=== PATIENT | female | born 1990 | race Caucasian/White ===

== ENCOUNTER 2018-11-17 11:40 | Emergency (ER) | payer OTHER ==
[~2018-11-17] VITALS: Ht 170.2 cm; Wt 72.7 kg
[2018-11-17 11:48] VITALS: BP 133/86
--- NOTE | 2018-11-17 12:01 | NUR ---
pt to xray
--- NOTE | 2018-11-17 12:20 | NUR ---
PROVIDER AT BEDSIDE TO EVAL PT, PT IS RESTING QUIETLY ON GURNEY, RESP EVEN AND UNLABORED, SKIN P/W/D, TALKING FULL SENTENCES
[2018-11-17] MEDS ORDERED: BENZ-16 PO (12:32)
== END 2018-11-17 12:50 | disposition home or self-care (01) ==
LOC: ER 11:41
DX: J20.9 Acute bronchitis, unspecified (principal); Z88.6 Allergy status to analgesic agent; Z79.899 Other long term (current) drug therapy
CPT/HCPCS: 71046; 99283

== ENCOUNTER 2020-07-11 00:31 | Emergency (ER) | payer MEDICAID ==
[~2020-07-11] VITALS: Ht 167.6 cm; Wt 67.5 kg
--- NOTE | 2020-07-11 01:30 | NUR ---
Pt is lying on gurney and appears to be resting comfortably. Pt with no s/s of distress noted. Resp rate remains normal.
[2020-07-11 01:34] LABS: BASOPHILS # (AUTO) 0.1 X10'3 (0-0.2); BASOPHILS % (AUTO) 0.9 % (0-1); EOSINOPHILS # (AUTO) 0.1 X10'3 (0-0.9); EOSINOPHILS % (AUTO) 0.9 % (0-6); HEMATOCRIT 37.7 % (35.0-45.0); LYMPHOCYTES # (AUTO) 2.2 X10'3 (1.1-4.8); LYMPHOCYTES % (AUTO) 32.2 % (21-51); MEAN CORPUSCULAR HEMOGLOBIN 31.5 PG (27.0-31.0); MEAN CORPUSCULAR HGB CONC 34.5 g/dL (33.0-36.5); MEAN CORPUSCULAR VOLUME 91.4 FL (78-98); MONOCYTES # (AUTO) 0.5 X10'3 (0-0.9); MONOCYTES % (AUTO) 7.4 % (2-12); NEUTROPHILS # (AUTO) 3.9 X10'3 (1.8-7.7); NEUTROPHILS % (AUTO) 58.6 % (42-75); PLATELET COUNT 284 X10'3 (140-440); RED BLOOD COUNT 4.12 X10'6 (4.20-5.60); RED CELL DISTRIBUTION WIDTH 12.3 % (11.5-14.5); WHITE BLOOD COUNT 6.7 X10'3 (4.5-11.0)
[2020-07-11 01:36] LABS: CLARITY,URINE CLEAR (Clear); COLOR,URINE STRAW (Yellow); GLUCOSE, URINE NEGATIVE (Neg); KETONES,URINE NEGATIVE (Neg); LEUKOCYTE ESTERASE ,URINE NEGATIVE (Neg); NITRITES, URINE NEGATIVE (Neg); OCCULT BLOOD,URINE NEGATIVE (Neg); PROTEIN,URINE NEGATIVE (Neg); UROBILINOGEN,URINE 0.2 E.U/dL (0.2-1.0)
[2020-07-11 01:37] LABS: UA COLLECTION TYPE CLN CATCH MIDSTREAM
[2020-07-11 01:38] LABS: URINE HCG NEGATIVE (NEG)
[2020-07-11 01:42] LABS: ALANINE AMINOTRANSFERASE 28 U/L (12-78); ALBUMIN 3.6 G/DL (3.4-5.0); ALKALINE PHOSPHATASE 74 IU/L (46-116); ANION GAP 12 (8-16); ASPARTATE AMINO TRANSFERASE 18 U/L (10-37); BILIRUBIN,TOTAL 0.2 MG/DL (0.1-1.0); BLOOD UREA NITROGEN 16 MG/DL (7-18); BUN/CREATININE RATIO 17.2 (6.6-38.0); CALCIUM 7.6 MG/DL (8.5-10.1); CHLORIDE 107 MMOL/L (99-107); CREATININE 0.93 MG/DL (0.40-0.90); GLUCOSE 96 MG/DL (70-104); POTASSIUM 3.8 MMOL/L (3.5-5.1); SODIUM 141 MMOL/L (135-145); TOTAL CARBON DIOXIDE 21.9 MMOL/L (24-32); TOTAL PROTEIN 7.3 G/DL (6.4-8.2); eGFR 72 ML/MIN
[2020-07-11 01:50] LABS: URINE AMPHETAMINE SCREEN NEGATIVE (Neg); URINE BARBITUATE SCREEN NEGATIVE (Neg); URINE BENZODIAZEPINES SCREEN NEGATIVE (Neg); URINE CANNABINOID SCREEN POSITIVE (Neg); URINE COCAINE SCREEN NEGATIVE (Neg); URINE METHADONE SCREEN NEGATIVE (Neg); URINE OPIATE SCREEN NEGATIVE (Neg); URINE PHENCYCLIDINE SCREEN NEGATIVE (Neg)
[2020-07-11 01:51] LABS: ACETAMINOPHEN < 2.0 UG/ML (10-30); ETHANOL 0.097 GM/DL (0.0-0.010)
--- NOTE | 2020-07-11 02:25 | NUR ---
Pt still lying on the gurney with no apparent s/s of distress noted
--- NOTE | 2020-07-11 02:39 | NUR ---
Packet sent to [facility]
--- NOTE | 2020-07-11 03:30 | NUR ---
Pt appears to be resting comfortably with no apparent s/s of distress. Pt was responsive to staff entering her room and asked where she was. Pt was told she was in the ER [facility] and she replied "ok" and turned over and went back to sleep
--- NOTE | 2020-07-11 04:30 | NUR ---
Pt appears to be resting comfortably. No apparent s/s of distress
--- NOTE | 2020-07-11 06:35 | NUR ---
ASSUMED CARE. PT RESTING WITH EYES CLOSED ON LEFT SIDE RR EQUAL AND UNLABORED
--- NOTE | 2020-07-11 08:12 | NUR ---
PT RESTING WITH EYES CLOSED RR EQUAL AND UNLABORED
--- NOTE | 2020-07-11 09:28 | NUR ---
PT RESTING ON BACK WITH EYES CLOSED. RR EQUAL AND UNLABORED
--- NOTE | 2020-07-11 11:36 | NUR ---
SPOKE WITH GASPER FROM [facility] RE PT STATING SHE DOES NOT WANT TO HARM HERSELF. HE WILL EVALUATE PT TODAY. PT NOTIFIED
--- NOTE | 2020-07-11 12:10 | NUR ---
called ronna from [facility] grand mother want to talk to grand daughter ,informed that pt is sleeping at this time she will you back onces she is awake.grandmother no [phone]. primary nurse nano aragon aware.
--- NOTE | 2020-07-11 12:16 | NUR ---
PT RESTING WITH EYES CLOSED ON RIGHT SIDE RR EQUAL AND UNLABORED.
--- NOTE | 2020-07-11 12:43 | NUR ---
UP TO BR STEADY GAIT
--- NOTE | 2020-07-11 14:20 | NUR ---
PT TALKING TO GRANDMA ON PHONE
--- NOTE | 2020-07-11 16:18 | NUR ---
PT RESTING WITH EYES CLOSED ON RIGHT SIDE RR EQUAL AND ULABORED
[2020-07-11] MEDS ORDERED: ibuprofen tablet 400 MG TABLET PO PRN (17:35)
[2020-07-11] MEDS: ibuprofen 200mg tablet PO PRN (17:58)
--- NOTE | 2020-07-11 19:05 | NUR ---
Pt is lying in bed c/o mild chest discomfort with some radiation to her L arm. Pt states its just kind of a dull heavy feeling that is taking her breath away. Obtaining EKG
--- NOTE | 2020-07-11 19:18 | NUR ---
EKG completed and given to MD. Pt reports feeling anxious now that she is more alert and aware of everything going on. MD placing new order for Ativan
[2020-07-11] MEDS ORDERED: LORazepam 1 MG tablet PO ONE (19:20)
--- NOTE | 2020-07-11 20:12 | NUR ---
Patient is sitting up in her bed talking on the phone with her grandma. Pt's anxiety appears to have improved
--- NOTE | 2020-07-11 21:10 | NUR ---
Pt appears to be resting comfortably. No apparent s/s of distress
--- NOTE | 2020-07-11 22:10 | NUR ---
Pt appears to be resting comfortably. No apparent s/s of distress
--- NOTE | 2020-07-11 23:05 | NUR ---
Pt appears to be resting comfortably. No apparent s/s of distress
--- NOTE | 2020-07-12 00:03 | NUR ---
Received report and assumed pt care. Pt resting quietly, respirations normal, s/s of distress.
--- NOTE | 2020-07-12 02:37 | NUR ---
Pt resting quietly, respirations normal, s/s of distress.
--- NOTE | 2020-07-12 03:30 | NUR ---
Pt up to restroom. Requested ice chips.
--- NOTE | 2020-07-12 04:27 | NUR ---
Pt resting quietly, respirations normal, s/s of distress.
[2020-07-12 05:26] VITALS: BP 116/85
[2020-07-12] MEDS ORDERED: chlordiazePOXIDE 25mg capsule PO ONE (08:25)
[2020-07-12] MEDS: ibuprofen 200mg tablet PO PRN (11:06)
[2020-07-12] MEDS ORDERED: NO HOME MEDS (17:15)
[2020-07-15] MEDS ORDERED: TRAZ-251 PO (12:23)
== END 2020-07-12 11:14 ==
LOC: ER 00:31
DX: T42.4X4A Poisoning by benzodiazepines, undetermined, initial encounter (principal); F10.129 Alcohol abuse with intoxication, unspecified; Z98.890 Other specified postprocedural states; Z72.89 Other problems related to lifestyle; Z88.6 Allergy status to analgesic agent; Y92.89 Other specified places as the place of occurrence of the external cause; Y90.0 Blood alcohol level of less than 20 mg/100 ml
CPT/HCPCS: 36415; 80053; 80305; 80320; 80329; 81003; 81025; 84443; 85025; 93005; 99285

== ENCOUNTER 2021-01-26 13:10 | Emergency (ER) | payer MEDICAID ==
[~2021-01-26] VITALS: Ht 170.2 cm; Wt 70.0 kg
[~2021-01-26 13:10] MED LIST: TRAZ-251 PO
[2021-01-26 13:12] VITALS: BP 144/93
[2021-01-26 13:56] LABS: CLARITY,URINE SLIGHTLY CLOUDY (Clear); COLOR,URINE YELLOW (Yellow); GLUCOSE, URINE NEGATIVE (Neg); KETONES,URINE TRACE mg/dl (Neg); LEUKOCYTE ESTERASE ,URINE TRACE (Neg); NITRITES, URINE NEGATIVE (Neg); OCCULT BLOOD,URINE NEGATIVE (Neg); PH,URINE 6.5 (4.8-8.0); PROTEIN,URINE NEGATIVE (Neg); UROBILINOGEN,URINE 0.2 E.U/dL (0.2-1.0)
[2021-01-26 13:57] LABS: URINE HCG NEGATIVE (NEG)
[2021-01-26 14:00] LABS: UA COLLECTION TYPE CLN CATCH MIDSTREAM
[2021-01-26 14:02] LABS: URINE AMPHETAMINE SCREEN NEGATIVE (Neg); URINE BARBITUATE SCREEN NEGATIVE (Neg); URINE BENZODIAZEPINES SCREEN NEGATIVE (Neg); URINE CANNABINOID SCREEN POSITIVE (Neg); URINE COCAINE SCREEN NEGATIVE (Neg); URINE METHADONE SCREEN NEGATIVE (Neg); URINE OPIATE SCREEN NEGATIVE (Neg); URINE PHENCYCLIDINE SCREEN NEGATIVE (Neg)
[2021-01-26 14:12] LABS: MUCUS STRANDS MODERATE /LPF (Neg)
[2021-01-26 14:14] LABS: BACTERIA,URINE FEW /HPF (Neg); RBC,URINE 0-2 /HPF (0-2); WBC,URINE 0-4 /HPF (0-4)
[2021-01-26 14:16] LABS: SQUAMOUS EPITHELIAL CELL,UR MANY /LPF (FEW)
[2021-01-26] MEDS ORDERED: KETO10TA2 PO (14:43)
== END 2021-01-26 14:55 | disposition home or self-care (01) ==
LOC: ER 13:10
DX: N83.201 Unspecified ovarian cyst, right side (principal); R10.31 Right lower quadrant pain; R30.9 Painful micturition, unspecified; Z98.890 Other specified postprocedural states; Z72.89 Other problems related to lifestyle; Z88.6 Allergy status to analgesic agent; Z79.899 Other long term (current) drug therapy
CPT/HCPCS: 76856; 80305; 81001; 81025; 93976; 99284

== ENCOUNTER 2021-02-09 09:54 | Emergency (ER) | payer MEDICAID ==
[~2021-02-09] VITALS: Ht 167.6 cm; Wt 62.3 kg
[~2021-02-09 09:54] MED LIST changes: +KETO10TA2 PO
[2021-02-09] MEDS ORDERED: hydrOXYzine 25 MG tablet PO ONE (10:30)
[2021-02-09 10:54] LABS: BASOPHILS # (AUTO) 0.1 X10'3 (0-0.2); BASOPHILS % (AUTO) 1.1 % (0-1); EOSINOPHILS % (AUTO) 0.7 % (0-6); HEMATOCRIT 39.4 % (35.0-45.0); HEMOGLOBIN 13.4 g/dl (12.0-16.0); LYMPHOCYTES # (AUTO) 1.7 X10'3 (1.1-4.8); LYMPHOCYTES % (AUTO) 28.6 % (21-51); MEAN CORPUSCULAR HEMOGLOBIN 29.9 PG (27.0-31.0); MEAN CORPUSCULAR HGB CONC 34.1 g/dL (33.0-36.5); MEAN CORPUSCULAR VOLUME 87.8 FL (78-98); MEAN PLATELET VOLUME 7.8 FL (7.4-10.4); MONOCYTES # (AUTO) 0.5 X10'3 (0-0.9); MONOCYTES % (AUTO) 7.6 % (2-12); NEUTROPHILS # (AUTO) 3.7 X10'3 (1.8-7.7); PLATELET COUNT 282 X10'3 (140-440); RED BLOOD COUNT 4.49 X10'6 (4.20-5.60)
[2021-02-09 11:14] LABS: ALANINE AMINOTRANSFERASE 21 U/L (12-78); ALBUMIN 4.4 G/DL (3.4-5.0); ALBUMIN/GLOBULIN RATIO 1.4 (1.1-1.5); ALKALINE PHOSPHATASE 58 IU/L (46-116); ANION GAP 16 (8-16); ASPARTATE AMINO TRANSFERASE 12 U/L (10-37); BILIRUBIN,TOTAL 0.4 MG/DL (0.1-1.0); BLOOD UREA NITROGEN 10 MG/DL (7-18); BUN/CREATININE RATIO 13.3 (6.6-38.0); CHLORIDE 104 MMOL/L (99-107); CREATININE 0.75 MG/DL (0.40-0.90); GLUCOSE 98 MG/DL (70-104); POTASSIUM 3.7 MMOL/L (3.5-5.1); SODIUM 142 MMOL/L (135-145); TOTAL CARBON DIOXIDE 22.5 MMOL/L (24-32); TOTAL PROTEIN 7.5 G/DL (6.4-8.2); eGFR > 90 ML/MIN
[2021-02-09 12:33] VITALS: BP 117/72
== END 2021-02-09 12:37 | disposition home or self-care (01) ==
LOC: ER 09:54
DX: Z02.89 Encounter for other administrative examinations (principal); R07.89 Other chest pain; F41.9 Anxiety disorder, unspecified; R42 Dizziness and giddiness; F17.200 Nicotine dependence, unspecified, uncomplicated; F12.90 Cannabis use, unspecified, uncomplicated; Z72.89 Other problems related to lifestyle; Z98.890 Other specified postprocedural states; Z88.6 Allergy status to analgesic agent; Z79.899 Other long term (current) drug therapy
CPT/HCPCS: 36415; 80053; 85025; 99283; Q0177

== ENCOUNTER 2021-11-14 15:35 | Emergency (ER) | payer MEDICAID ==
[~2021-11-14] VITALS: Ht 170.2 cm; Wt 65.0 kg
[2021-11-14 16:57] VITALS: BP 128/103
[2021-11-14] MEDS ORDERED: ketorolac trometh inj. 60 MG/2 ML VIAL IM ONE (19:20)
[2021-11-14] MEDS ORDERED: LIDOCAINE 5% OINTMENT 35GM TP ONE (19:20)
[2021-11-14] MEDS ORDERED: acyclovir 200 MG capsule PO ONE (19:20)
[2021-11-14] MEDS ORDERED: OXYcodone (OXYCONTIN) Ext Release 15 MG TAB.SR.12H PO ONE (19:20)
[2021-11-14] MEDS ORDERED: OXYC5CAP19 PO (19:34)
[2021-11-14] MEDS ORDERED: LIDO30CR TOP (19:34)
[2021-11-14] MEDS ORDERED: ondansetron 4mg rapidly disintigrating tab PO ONE (19:55)
== END 2021-11-14 20:30 | disposition home or self-care (01) ==
LOC: ER 15:35
DX: M54.50 Low back pain, unspecified (principal); G89.29 Other chronic pain; F12.90 Cannabis use, unspecified, uncomplicated; Z98.890 Other specified postprocedural states; Z72.89 Other problems related to lifestyle; Z88.6 Allergy status to analgesic agent; Z79.899 Other long term (current) drug therapy
CPT/HCPCS: 72100; 96372; 99284; J1885

== ENCOUNTER 2023-03-15 04:03 | Emergency (ER) | payer MEDICAID ==
[~2023-03-15] VITALS: Ht 170.2 cm; Wt 68.2 kg
[~2023-03-15 04:03] MED LIST changes: +LIDO30CR TOP; +OXYC5CAP19 PO
[2023-03-15 04:42] LABS: URINE HCG POSITIVE (NEG)
[2023-03-15 04:43] LABS: CLARITY,URINE CLOUDY (Clear); COLOR,URINE YELLOW (Yellow); GLUCOSE, URINE NEGATIVE (Neg); KETONES,URINE NEGATIVE (Neg); LEUKOCYTE ESTERASE ,URINE NEGATIVE (Neg); NITRITES, URINE NEGATIVE (Neg); OCCULT BLOOD,URINE LARGE (Neg); PROTEIN,URINE NEGATIVE (Neg); UROBILINOGEN,URINE 0.2 E.U/dL (0.2-1.0)
[2023-03-15 04:50] LABS: SQUAMOUS EPITHELIAL CELL,UR MANY /LPF (FEW); UA COLLECTION TYPE CLN CATCH MIDSTREAM
[2023-03-15 04:51] LABS: BACTERIA,URINE 2+ /HPF (Neg); TRANSITIONAL EPI CELLS,URINE FEW /HPF; WBC,URINE 0-4 /HPF (0-4)
[2023-03-15 05:00] LABS: BASOPHILS # (AUTO) 0.1 X10'3 (0-0.2); BASOPHILS % (AUTO) 0.8 % (0-1); EOSINOPHILS # (AUTO) 0.1 X10'3 (0-0.9); EOSINOPHILS % (AUTO) 0.8 % (0-6); HEMATOCRIT 37.5 % (35.0-45.0); HEMOGLOBIN 12.7 g/dl (12.0-16.0); LYMPHOCYTES # (AUTO) 1.9 X10'3 (1.1-4.8); LYMPHOCYTES % (AUTO) 22.9 % (21-51); MEAN CORPUSCULAR HEMOGLOBIN 30.5 PG (27.0-31.0); MEAN CORPUSCULAR HGB CONC 33.9 g/dL (33.0-36.5); MEAN PLATELET VOLUME 8.1 FL (7.4-10.4); MONOCYTES # (AUTO) 0.5 X10'3 (0-0.9); MONOCYTES % (AUTO) 6.3 % (2-12); NEUTROPHILS # (AUTO) 5.7 X10'3 (1.8-7.7); NEUTROPHILS % (AUTO) 69.2 % (42-75); PLATELET COUNT 269 X10'3 (140-440); RED BLOOD COUNT 4.17 X10'6 (4.20-5.60); RED CELL DISTRIBUTION WIDTH 12.3 % (11.5-14.5); WHITE BLOOD COUNT 8.2 X10'3 (4.5-11.0)
[2023-03-15 05:16] LABS: ALANINE AMINOTRANSFERASE 15 U/L (12-78); ALBUMIN 3.6 G/DL (3.4-5.0); ALBUMIN/GLOBULIN RATIO 1.2 (1.1-1.5); ALKALINE PHOSPHATASE 56 IU/L (46-116); ANION GAP 12 (8-16); ASPARTATE AMINO TRANSFERASE 11 U/L (10-37); BILIRUBIN,TOTAL 0.1 MG/DL (0.1-1.0); BLOOD UREA NITROGEN 9 MG/DL (7-18); BUN/CREATININE RATIO 13.6 (10.0-20.0); CALCIUM 8.5 MG/DL (8.5-10.1); CHLORIDE 101 MMOL/L (99-107); CREATININE 0.66 MG/DL (0.40-0.90); GLUCOSE 91 MG/DL (70-104); LIPASE 59 U/L (73-393); POTASSIUM 3.6 MMOL/L (3.5-5.1); SODIUM 138 MMOL/L (135-145); TOTAL CARBON DIOXIDE 24.9 MMOL/L (24-32); TOTAL PROTEIN 6.6 G/DL (6.4-8.2); eGFR > 90 ML/MIN
[2023-03-15 06:57] LABS: BETA HCG,QUANTITATIVE 121102 mIU/ml
[2023-03-15] MEDS ORDERED: RHO(D) IMMUNE GLOBULIN 250 UNIT (50 MCG) DISP.SYRIN IM ONE (08:30)
--- NOTE | 2023-03-15 09:14 | NUR ---
EDUCATED PT ON MEDICATION SIDE EFFECTS, AND INDICATION. PT IS RH NEG AND WAS INSTRUCTED TO FOLLOW UP W/OB FOR FUTURE INJECTIONS. PT VERBALIZED UNDERSTANDING AND PROVIDED VERBAL TEACH BACK.
[2023-03-15] MEDS ORDERED: metoclopramide 10mg tablet PO ONE (09:40)
--- NOTE | 2023-03-15 09:48 | NUR ---
CONTACTED PHARMACY FOR DOSING RECOMMENDATIONS. SYRINGE IS NOT MARKED AND NEEDS SMALLER DOSE. PHARMACY TO MAKE CORRECTIONS.
[2023-03-15] MEDS ORDERED: RHO(D) immune globulin 1,500 units (300 MCG) syringe IM ONE (10:15)
[2023-03-15 10:57] VITALS: BP 117/85
== END 2023-03-15 11:00 | disposition home or self-care (01) ==
LOC: ER 04:06
DX: O03.9 Complete or unspecified spontaneous abortion without complication (principal); O46.8X1 Other antepartum hemorrhage, first trimester
CPT/HCPCS: 36415; 76801; 80053; 81001; 81025; 83690; 84702; 85025; 86885; 86900; 86901; 96372; 99285; J2790

== ENCOUNTER 2023-03-22 12:55 | Emergency (ER) | payer MEDICAID ==
[~2023-03-22] VITALS: Ht 170.2 cm; Wt 150.0 kg
[2023-03-22 13:06] VITALS: BP 113/76
[2023-03-22] MEDS ORDERED: CLOT15CR35 TOP (15:57)
[2023-03-22 17:16] LABS: CLARITY,URINE CLOUDY (Clear); COLOR,URINE YELLOW (Yellow); GLUCOSE, URINE NEGATIVE (Neg); KETONES,URINE NEGATIVE (Neg); LEUKOCYTE ESTERASE ,URINE NEGATIVE (Neg); NITRITES, URINE NEGATIVE (Neg); OCCULT BLOOD,URINE NEGATIVE (Neg); PROTEIN,URINE NEGATIVE (Neg); UROBILINOGEN,URINE 0.2 E.U/dL (0.2-1.0)
[2023-03-22 17:41] LABS: UA COLLECTION TYPE VOIDED
[2023-03-22 17:43] LABS: AMORPHOUS PHOSPHATES 4+; RBC,URINE NONE SEEN /HPF (0-2); SQUAMOUS EPITHELIAL CELL,UR NONE SEEN /LPF (FEW); WBC,URINE NONE SEEN /HPF (0-4)
[2023-03-22 17:44] LABS: BACTERIA,URINE NONE SEEN /HPF (Neg)
== END 2023-03-22 16:11 | disposition home or self-care (01) ==
LOC: ER 12:56
DX: O42.911 Preterm premature rupture of membranes, unspecified as to length of time between rupture and onset of labor, first trimester (principal); O99.891 Other specified diseases and conditions complicating pregnancy; Z3A.09 9 weeks gestation of pregnancy; F12.90 Cannabis use, unspecified, uncomplicated; Z88.6 Allergy status to analgesic agent
CPT/HCPCS: 36415; 76801; 81001; 87491; 87591; 99284; Q0112

== ENCOUNTER 2025-07-28 15:12 | Emergency (ER) | payer MEDICAID ==
[~2025-07-28] VITALS: Ht 172.7 cm; Wt 59.1 kg
[~2025-07-28 15:12] MED LIST changes: +CLOT15CR35 TOP; -OXYC5CAP19 PO; +OXYC5CAP22 PO
--- NOTE | 2025-07-28 15:32 | ELECTROCARDIOGRAPH REPORT ---
[facility] Test Date: 2025-07-28 Test Time: 15:20:41 Pat Name: BEVERLY MOREL Department: EMERGENCY ROOM Room: Gender: F Sanding Supervisor: VERONICA : [id number] Requested By: DACIA LAMA Order Number: [id number] Reading MD: Measurements Intervals Christopher Rate: 102 P: 70 ID: [id number] QRS: 87 QRSD: 91 T: -58 QT: 337 QTc: 439 Interpretive Statements Sinus tachycardia Ventricular premature complex MARISOL, consider biatrial enlargement Nonspecific repol abnormality, diffuse leads Please click the below link to view image of tracing.
--- NOTE | 2025-07-28 15:32 | Physician Documentation ---
History of Present Illness ~ Chief Complaint: Overdose Stated Complaint: OVERDOSE Time Seen by MD: 15:22 Primary Medical Doctor: [facility] HPI 35-year-old female who presents with possible overdose Per EMS, the patient was found down in a bathroom of a bar, responsive to painful stimuli only. She was given intranasal Narcan and woke up. People on scene mentioned that she had use some cocaine. Here in the ED, the patient is now awake, appears extremely anxious. She admits to snorting cocaine today. She denies any other substance use. She denies any self-harm attempt. She reports feeling very anxious and that her entire body feels very tight. She is hyperventilating. Medication Reconciliation Allergies: Coded Allergies: acetaminophen (Verified Allergy, Unknown, 07/28/25) Scheduled Clotrimazole (Clotrimazole), 1 APPLIC TOP Q8H Ketorolac Tromethamine (Ketorolac Tromethamine), 1 TAB PO Q8H Lidocaine/Prilocaine (Lidocaine-Prilocaine Cream), 1 APPLIC TOP UD Naloxone HCl (Narcan), 1 SPRAYS BOTHNARES ONCE Oxycodone HCl (Oxycodone HCl), 1 CAP PO TID PRN Scheduled PRN Trazodone HCl (Trazodone HCl), 50 MG PO HS PRN for insomnia Past Medical History Past Medical History: No Pertinent History, Chronic Back Pain, Extremity Fracture Past Surgical History: other Other Past Surgical History: Plates and screws in jaw Alcohol Use: Occasionally Drug Use: marijuana Lives In: Home Occupation: employed Review of Systems Gastrointestinal: Reports: nausea; Denies: abdominal pain Physical Exam Vital Signs: Temperature: 97.3, Source: Oral, Heart Rate: 83, Respiratory Rate: 18, BP: 129/77, Pulse Oximetry: 98, Weight: 59.090 Oxygen Flow Rate: 0 Physical Exam General: This is an extremely anxious appearing thin young female HEENT: Atraumatic, oropharynx is dry with cracked lips Heart: Mild tachycardic, appears regular Lungs: The patient is hyperventilating, but her oxygen saturations in the high 90s on room air Abdomen: Soft and nontender all quadrants Neuro: Alert and oriented, following commands Psychiatric: Extremely anxious, intermittently hyperventilating Progress Results/Orders Results/Orders Completed Orders - DACIA LAMA MD Drug Screen, Urine (07/28/25 15:28) Ondansetron Disint. Tablet (Zofran Odt T (07/28/25 15:30) Electrocardiogram (07/28/25 ) Medications Received in ER Medications (Trade) Dose Ordered Sig/Holden Route PRN Reason Start Time Stop Time Status Last Admin Dose Admin (Zofran ODT tablet) 4 mg ONCE ONCE PO 07/28/25 15:30 07/28/25 15:31 DC 07/28/25 15:36 4 MG Vital Signs 07/28/25 07/28/25 07/28/25 07/28/25 15:17 15:29 16:40 17:46 Temp 97.3 97.3 Pulse 83 66 88 Resp 18 18 16 18 B/P (MAP) 129/77 122/75 (91) 134/99 (111) Pulse Ox 98 99 98 O2 Flow Rate 0 0 0 07/28/25 18:37 Temp 97.3 Pulse 76 Resp 13 B/P (MAP) 112/87 Pulse Ox 98 Laboratory Tests Test 07/28/25 17:00 Urine Opiates Screen Negative Urine Methadone Screen Negative Urine Fentanyl Screen Negative Urine Barbiturates Screen Negative Urine Phencyclidine Screen Negative Urine Amphetamines Screen Negative Urine Benzodiazepines Screen Negative Urine Cocaine Screen Positive H Urine Cannabinoids Screen Positive H Drug Screen Comment EKG/XRAY/CT/US/VASC/MRI EKG : Additional Comment I personally interpreted the EKG and this shows: Sinus tachycardic, rate 102, QTC 439, poor baseline and nonspecific ST changes Medical Decision Making Differential Dx:Considerations: Include: Alcohol abuse, Anxiety, Drug Overdose- Accidental, Drug Overdose-Intentional Additional Comment The patient presents with a likely accidental overdose. She was given Narcan with improvement. By time of my evaluation she is awake and quite anxious. She was observed for several hours during which time she had no further respiratory depression or other dangerous symptoms. Drug screen is positive for cocaine and marijuana, but does not show opiates. The exact cause of her overdose is unclear. No evidence of another dangerous medical or surgical emergency at this time. She will be discharged with a prescription for Narcan and instructions to try and avoid unknown substance use. Departure Time of Disposition: 18:20 Disposition: 01 HOME / SELF CARE / HOMELESS Impression: Primary Impression: Accidental overdose Condition: Improved Discharge Instructions: Accidental Drug Poisoning, Adult Referrals: NO PRIMARY CARE PROVIDER (PCP) Prescriptions Naloxone HCl (Narcan) 4 Mg/Actuation [place] 1 SPRAYS BOTHNARES ONCE for opioid overdose for 1 Day, #1 EA 1 Refill Prov: DACIA LAMA MD 07/28/25 Education Educated: Patient, Family Educated regarding: diagnosis, need for follow up Signature Scribe Signature: mayra Attestation: DACIA Solorzano MD Jul 28, 2025 15:32
[2025-07-28] MEDS: ondansetron 4mg rapidly disintigrating tab PO ONE (15:36)
[2025-07-28 17:30] LABS: URINE AMPHETAMINE SCREEN NEGATIVE (Neg); URINE BARBITUATE SCREEN NEGATIVE (Neg); URINE BENZODIAZEPINES SCREEN NEGATIVE (Neg); URINE CANNABINOID SCREEN POSITIVE (Neg); URINE COCAINE SCREEN POSITIVE (Neg); URINE METHADONE SCREEN NEGATIVE (Neg); URINE OPIATE SCREEN NEGATIVE (Neg); URINE PHENCYCLIDINE SCREEN NEGATIVE (Neg)
[2025-07-28] MEDS ORDERED: NALO4SPR BOTHNARES (18:27)
[2025-07-28 18:37] VITALS: BP 112/87; PULSE 76; RESP 13; TEMP 97.3; O2SAT 98
== END 2025-07-28 18:39 | disposition home or self-care (01) ==
LOC: ER 15:13
DX: T40.5X1A Poisoning by cocaine, accidental (unintentional), initial encounter (principal); F12.90 Cannabis use, unspecified, uncomplicated; Z88.6 Allergy status to analgesic agent; Z79.899 Other long term (current) drug therapy; Z72.89 Other problems related to lifestyle; Y92.89 Other specified places as the place of occurrence of the external cause
CPT/HCPCS: 80305; 93005; 99284